=== PATIENT | male | born 1955 | race Caucasian/White ===

== ENCOUNTER 2023-06-12 20:26 | Emergency (ER) | payer BC, SELFPAY ==
[2023-06-12 20:27] VITALS: BP 176/110
[2023-06-12 20:34] LABS: Glucose - Point of Care 332 mg/dl (70-99)
--- NOTE | 2023-06-12 21:38 | ED.GENMED ---
History of Present Illness
General
Chief Complaint: Blood Sugar Problem
Source: patient
Exam Limitations: none
Time Seen by Provider: 06/12/23 21:15
Travel History
Have you had any contact with someone who has COVID-19?: No
Do you have any symptoms of coronavirus? Fever > 100 degrees, chills, cough, shortness of breath, sore throat, loss of taste or smell, muscle aches, or headache?: No
History of Present Illness
History of Present Illness:
This is a 67 year old male that comes in with c/o elevated blood sugar. States that he had blood work done for his PCP on Friday. States that the PCP called him today twice and said that he needed to come to the hospital that his blood sugar was
elevated and he is a diabetic. Patient stats that he has had weight loss lately but has been working on lossing weight, Urinary frequency and Polydipsia. Denies any fever, chills, chest pain, SOB, abd pain, nausea, vomiting, diarrhea, headache,
dizziness, urinary burning.
Past History
Past History
ED Past Medical History: Other (GI bleeding)
ED Past Surgical History: Orthopedic (right knee surgery)
Social History
Tobacco: Non-smoker
Alcohol: Daily (Beer 2)
Personal:
Living: with family
Review of Systems
Review of Systems
All Other Systems: ROS reviewed and negative except as documented in HPI and ROS
Constitutional: Reports no symptoms; Denies fever or chills
EENT: Reports no symptoms
Respiratory: Reports no symptoms
Cardiac: Reports no symptoms
ABD/GI: Reports no symptoms; Denies abdominal pain, nausea, vomiting or diarrhea
: Reports frequency; Denies dysuria or urgency
Musculoskeletal: Reports no symptoms
Skin: Reports no symptoms
Neurological: Reports no symptoms; Denies dizzy or headache
Psychiatric: Reports no symptoms
Phy Exam
General Physical Exam
General Presentation: well appearing and no apparent distress
General age: appears stated age
General Skin: warm and dry
General Habitus: normal
General Mental: alert
General Hydration: appears well hydrated
ENT Exam
ENT Exam: TM's normal, pharynx normal and neck supple
Eye Exam
Eye Exam: EOMI
Cardiovascular Exam
Cardiovascular Exam: regular rate/rhythm, no edema, no murmur and normal peripheral pulses
Pulmonary Exam
Pulmonary Exam: lungs clear, no respiratory distress, no rales, chest non tender, no crackles, no rhonchi, no wheezing and no cough
Gastrointestinal Exam
Gastrointestinal Exam: normal bowel sounds, non tender, soft, no organomegaly, no pulsatile mass and non distended
Musculoskeletal Exam
Musculoskeletal Exam: full ROM and no edema
Skin Exam
Skin Exam: normal color, warm/dry, no rash and no petechia
Psychiatric Exam
Psychiatric Exam: normal mood/affect
Course
Orders/Labs/Results
Orders:
Orders
06/12/23 21:37
0.9% Sodium Chloride 1000 ml [Nss] 1,000 ml IV BOLUS
06/12/23 21:47
Complete Blood Count/With Diff Urgent
Comprehensive Metabolic Panel Urgent
Hemoglobin A1c [Glycohemoglobin (HgbA1c)] Urgent
06/12/23 23:19
Urinalysis Reflex To Culture Urgent
Date Specimen was Collected: 06/12/23
Time Specimen was Collected: 23:17
06/12/23 23:23
METFORMIN HCl [Glucophage] 500 mg PO NOW STA
Abnormal Lab Results
06/12/23 06/12/23 06/12/23
20:33 21:47 23:18
MCH 31.3 H pg
(27.0-31.0)
Abs Immat Gran (auto) 0.1 H 10^3/uL
(0-0.05)
Immature Gran % 0.9 H %
(0-0.5)
Sodium 133 L mmol/L
(135-145)
Glucose 331 H mg/dl
(70-99)
ALT 72 H U/L
(0-50)
Urine Ketones
Urine Glucose
POC Glucose 332 H mg/dl 271 H mg/dl
(70-99) (70-99)
06/12/23
23:19
MCH
Abs Immat Gran (auto)
Immature Gran %
Sodium
Glucose
ALT
Urine Ketones Trace A
(Negative)
Urine Glucose 3+ A
(Negative)
POC Glucose
06/12/23 21:47
06/12/23 21:47
Sodium slightly low. Glucose nonfasting. ALT elevation (daily alcohol use), Anion gap 6, Urine negative for infection trace ketones +3 glucose.
Vital Signs
Initial and Last Documented VS:
Initial Vital Signs
Temp Pulse Resp BP Pulse Ox
97.7 F 79 18 176/110 96
06/12/23 20:27 06/12/23 20:27 06/12/23 20:27 06/12/23 20:27 06/12/23 20:27
Last Documented Vital Signs
Temp Pulse Resp BP Pulse Ox
97.7 F 61 16 137/77 94
06/12/23 20:27 06/12/23 23:20 06/12/23 23:20 06/12/23 23:20 06/12/23 23:20
Specialty Person consulted with Physician
Specialty Person consulted with physician?: Yes
Name of Physician Consulted: Dr. Guzmán
MDM/Problems Addressed
Differential Diagnosis Includes:
diabetic II,
MDM/Problems Addressed:
This is a 67 year old male that comes in with c/o elevated blood sugar. States that his PCP did blood work on Friday and he called him twice today and told him to come to the ER that he was diabetic.
Will check labs, give IV fluids and get urine.
Back into see patient. Explained that after his fluids his blood sugar is down to 271. Will start patient on Metformin 500mg BID. Patient states that he has an appointment with is PCP tomorrow at 3pm. Encouraged patient to increase his water intake
to 8-8oz glasses daily. He may wish to switch to light beer or stop the alcohol use.Explained that you can get Diarrhea from the Metformin but does not happen to everyone. Patient to return with any concerns.
Chronic conditions affecting care:
NA
Acute Exacerbation and/or Progression of Chronic Illness:
NA
*Pulse Oximetry
Patient hypoxic: no
*EKG
Interpreted by ED Provider?: NA
Rate: EKG- N/A
*Visual Merchandising Associate Interpretation
Rate: Visual Merchandising Associate- N/A
*Critical Care Note
Total Time (30-74mins, 75-104mins- exclusive of procedures): Not Applicable
ED Attending Note
-
Portions of this chart may have been created with voice recognition software.� Occasional wrong word or��sound alike� substitutions may have occurred due to the inherent limitations of voice recognition software.
Discharge Plan
Departure
Patient with high blood pressure during this ER visit?: Yes
Condition: Good
Discharge Problem:
New onset type 2 diabetes mellitus
Instructions: Type 2 Diabetes (DC), BLOOD PRESSURE
Prescriptions:
New
metformin 500 mg tablet
500 mg PO BID Qty: 60 0RF
No Action
metronidazole 500 MG tablet
500 mg PO TID
levofloxacin 500 MG tablet
500 mg PO DAILY
pantoprazole 40 MG tablet,delayed release (DR/EC)
40 mg PO DAILY Qty: 30 0RF
Referrals:
Eduard Strong DO [Family Provider] - Tomorrow
Activity Restrictions/Additional Instructions:
As discussed, your blood work shows that your Sodium is slightly low and your blood sugar is elevated. You have been given IV fluids here to help bring the sugar done and also started on Metformin 500mg BID. Please take as directed. Please increase
your water intake to 8-8oz glasses daily. You may want to switch to a light beer of if you can stop the alcohol all together. Follow up with the family doctor for recheck. IF YOU HAVE ANY OTHER CONCERNS PLEASE RETURN TO THE EMERGENCY ROOM
Interventions
Interventions:
*Risk Screen - Suicide Last Done: 06/12/23 20:27
*General Assessment Last Done: 06/12/23 20:27
*Neglect/Abuse Screening Last Done: 06/12/23 20:27
[2023-06-12] MEDS: NSS 1000 IV (21:48)
[2023-06-12 21:55] LABS: % Basophils 0.8 % (0-2); % Eosinophils 0.8 % (0-6); % Immature Granulocytes 0.9 % (0-0.5); % Lymphocytes 39.5 % (20.5-51.1); % Monocytes 6.8 % (1.7-9.3); % Neutrophils 51.2 % (42.2-75.2); Absolute Basophils 0.1 10^3/uL (0-0.2); Absolute Eosinophils 0.1 10^3/uL (0-0.7); Absolute Immature Granulocytes 0.1 10^3/uL (0-0.05); Absolute Lymphocytes 2.5 10^3/uL (1.2-3.4); Absolute Monocytes 0.4 10^3/uL (0.1-0.6); Absolute Neutrophils 3.3 10^3/uL (1.4-6.5); Hematocrit 44.5 % (39.0-52.0); Hemoglobin 16.2 g/dL (13.0-18.0); Mean Corp Hgb Conc. 36.4 g/dL (33.0-37.0); Mean Corpuscular Hgb 31.3 pg (27.0-31.0); Mean Corpuscular Volume 86.1 fL (80.0-94.0); Nucleated Red Blood Cells % 0 % (-); Platelet Count 248 10^3/uL (130-400); Red Blood Cell Count 5.17 10^6/uL (4.70-6.10); Red Cell Dist. Width 12.2 % (11.5-14.5); White Blood Cell Count 6.4 10^3/uL (4.8-10.8)
[2023-06-12 22:15] LABS: ALT (SGPT) 72 U/L (0-50); AST (SGOT) 48 U/L (17-59); Albumin 4.4 g/dl (3.5-5.0); Alkaline Phosphatase 118 U/L (38-126); Blood Urea Nitrogen 16 mg/dl (9-20); Calcium 8.9 mg/dl (8.4-10.2); Carbon Dioxide 27 mmol/L (22-30); Chloride 100 mmol/L (98-107); Glucose 331 mg/dl (70-99); Potassium 3.9 mmol/L (3.5-5.1); Sodium 133 mmol/L (135-145); Total Bilirubin 0.6 mg/dl (0.2-1.3); Total Protein 6.8 g/dl (6.3-8.2); eGFR > 60.00
[2023-06-12 23:19] LABS: Glucose - Point of Care 271 mg/dl (70-99)
[2023-06-12 23:20] VITALS: BP 137/77
[2023-06-12 23:29] LABS: Urine Albumin Negative (Neg - Trace); Urine Bilirubin Negative (Negative); Urine Character Clear (Clear); Urine Color Yellow; Urine Glucose 3+ (Negative); Urine Ketone Trace (Negative); Urine Leukocyte Negative (Negative); Urine Nitrite Negative (Negative); Urine Occult Blood Negative (Negative); Urine Specific Gravity 1.015 (<1.030); Urine Urobilinogen Negative (Neg - 1+)
[2023-06-12] MEDS: GLUCOPHAGE 500 MG PO (23:31)
[2023-06-13 09:18] LABS: Glycohemoglobin (HgbA1c) 12.7 % (4.0-5.6)
== END 2023-06-13 | disposition home or self-care (01) ==
LOC: EMR 20:26
PROVIDERS: Clinical Nurse Specialist Family Health; EMERGENCY PHYSICIAN Emergency Medicine; FAMILY PHYSICIAN Family Medicine
DX: E11.65 Type 2 diabetes mellitus with hyperglycemia (principal); F10.90 Alcohol use, unspecified, uncomplicated; R03.0 Elevated blood-pressure reading, without diagnosis of hypertension
CPT/HCPCS: 99284; 96360; 80053; 81003; 82962; 83036; 85025

== ENCOUNTER → 2023-08-12 06:36 | Day surgery (SDC) | payer BC, SELFPAY ==
[2023-08-12 12:30] LABS: Glucose - Point of Care 93 mg/dl (70-99)
== END ==
LOC: GI 06:36
PROVIDERS: ATTENDING PHYSICIAN Internal Medicine
DX: Z12.11 Encounter for screening for malignant neoplasm of colon (principal); K64.8 Other hemorrhoids; D12.0 Benign neoplasm of cecum; K63.5 Polyp of colon; Z86.010 Personal history of colon polyps
CPT/HCPCS: 45385; 45380; 88305; 82962